=== PATIENT | female | born 1960 | race Hispanic/Latino ===

== ENCOUNTER 2018-01-12 21:22 | Emergency (ER) | payer SELFPAY ==
[2018-01-12 21:48] VITALS: BP 177/89; PULSE 89; TEMP 97.6; O2SAT 99
--- NOTE | 2018-01-12 23:14 | C.PDOC ---
History Of Present Illness 57 year old female presents to the ED c/o nose pain, epistaxis, laceration to her left forehead. Patient reports that she was walking fast to catch the bus when she tripped, fell and landed on her face. Patient is c/o nose bleed, nose pain and laceration to her left forehead. Patient denies LOC, headache, visual changes, nausea, vomiting, neck pain, weakness, numbness. Time Seen by Provider: 01/12/18 22:14 Chief Complaint (Nursing): Abnormal Skin Integrity History Per: Patient History/Exam Limitations: no limitations Onset/Duration Of Symptoms: Hrs Current Symptoms Are (Timing): Still Present Location Of Injury: Left: Head (forehead and nose) Quality Of Symptoms: Painful, Draining Recent travel outside of the [place]: No Additional History Per: Patient Past Medical History Reviewed: Historical Data, Nursing Documentation, Vital Signs Vital Signs: Last Vital Signs Temp 97.6 F 01/12/18 21:44 Pulse 89 01/12/18 21:44 Resp 20 01/12/18 23:23 BP 177/89 H 01/12/18 21:44 Pulse Ox 99 01/12/18 23:15 - Medical History PMH: HTN, Hypothyroidism Denies: Chronic Kidney Disease Surgical History: No Surg Hx Family History: States: Unknown Family Hx - Social History Hx Alcohol Use: No Hx Substance Use: No - Immunization History Hx Tetanus Toxoid Vaccination: No Hx Influenza Vaccination: No Hx Pneumococcal Vaccination: No Review Of Systems Constitutional: Negative for: Fever, Chills Eyes: Negative for: Vision Change ENT: Positive for: Nose Pain. Negative for: Nose Discharge, Mouth Pain, Throat Pain Respiratory: Negative for: Cough, Shortness of Breath Gastrointestinal: Negative for: Nausea, Vomiting Skin: Positive for: Other (laceration) Neurological: Negative for: Weakness, Numbness, Headache, Dizziness Physical Exam - Physical Exam Appears: Non-toxic, No Acute Distress Skin: Normal Color, Warm, Dry Head: Normacephalic, Laceration (0.25 cm laceration minimal active bleeding) Eye(s): bilateral: Normal Inspection, PERRL, EOMI Ear(s): Bilateral: Normal Nose: Tenderness (and swelling nasal bridge), No Septal Hematoma, Other ( minimal active bleeding. small abrasion to bridge of the nose) Oral Mucosa: Moist Tongue: No Lesions Lips: No Lesions Teeth: Normal Dentition, No Tender To Palpation, No Loose Neck: Normal ROM, No Midline Cervical Tenderness, Supple Chest: Symmetrical Cardiovascular: Rhythm Regular Respiratory: Normal Breath Sounds, No Rales, No Rhonchi, No Wheezing Gastrointestinal/Abdominal: Soft, No Tenderness, No Guarding, No Rebound Extremity: Normal ROM, No Tenderness, No Swelling Neurological/Psych: Oriented x3, Normal Speech, Normal Motor, Normal Sensation Gait: Steady ED Course And Treatment O2 Sat by Pulse Oximetry: 99 (ON RA) Pulse Ox Interpretation: Normal - Other Rad Nasal bones X-Ray X-Ray: Interpreted by Me, Viewed By Me Interpretation: shows fracture, "commuted"/2 small fractures of nasal bones Progress Note: Plan: - nasal bones X-Ray. Patient's laceration was cleaned with saline, dermabon and steri strips were applied. Patient was instructed in proper wound care and advised to follow up with PMD. Disposition Counseled Patient/Family Regarding: Diagnosis, Need For Followup, Rx Given - Disposition Referrals: Benny Turner MD [Staff Provider] - [facility] [Outside] Disposition: HOME/ ROUTINE Disposition Time: 23:10 Condition: STABLE Additional Instructions: Apply ICE to affected area Take meds as directed Return to ER if worse Prescriptions: Amoxicillin/Clavulanate [Augmentin 500 MG-125 MG] 1 tab PO TID #20 tab Ibuprofen [Motrin] 600 mg PO Q6H #20 tab Oxymetazoline 0.05% [Oxymetazoline HCl 30 Ml] 1 spray NS BID #1 bottle Instructions: Laceration Repair With Glue (DC), Nose Fracture (DC) Forms: [employer] (Nauruan) - Clinical Impression Clinical Impression: Nasal bone fractures, Nasal abrasion, Laceration of forehead - PA / NURSE INTERN / Resident Statement MD/DO has reviewed & agrees with the documentation as recorded. - Scribe Statement The provider has reviewed the documentation as recorded by the Scribe Anthony Guerrier All medical record entries made by the Scribe were at my direction and personally dictated by me. I have reviewed the chart and agree that the record accurately reflects my personal performance of the history, physical exam, medical decision making, and the department course for this patient. I have also personally directed, reviewed, and agree with the discharge instructions and disposition.
[2018-01-12 23:24] VITALS: RESP 20
--- NOTE | 2018-01-13 08:38 | RAD ---
Date of service: 01/12/2018 PROCEDURE: Radiographs of Nasal Bones HISTORY: pain and swelling to nose COMPARISON: None available. TECHNIQUE: Frontal and lateral radiographs of the nasal bones. FINDINGS: Comminuted fractures non depressed of the nasal bone are present. The maxillary spine is intact IMPRESSION: Nasal bone fractures non depressed as above.
== END 2018-01-12 23:23 | disposition home or self-care (01) ==
LOC: C.ER 21:22 → EDBD 21:22 → C.ER 23:23
DX: S02.2XXA Fracture of nasal bones, initial encounter for closed fracture (principal); S01.81XA Laceration without foreign body of other part of head, initial encounter; S00.31XA Abrasion of nose, initial encounter; W01.0XXA Fall on same level from slipping, tripping and stumbling without subsequent striking against object, initial encounter